=== PATIENT | female | born 1960 | race African-American/Black ===

== ENCOUNTER 2016-12-14 13:44 | Emergency (ER) | payer OTHER ==
[2016-12-14 13:48] VITALS: BP 142/95; PULSE 81; TEMP 98.1; BMI 25.6
[2016-12-14] MEDS ORDERED: KETOROLAC TROMETHAMINE 60 MG/2 ML VIAL IM ONE (14:17)
--- NOTE | 2016-12-14 14:23 | PDOC ---
History of Present Illness - General Chief Complaint: Back Pain Stated Complaint: BACK SPASMS Time Seen by Provider: 12/14/16 14:01 History Source: Patient Exam Limitations: No Limitations - History of Present Illness Initial Comments: 12/14/16 14:17 CHIEF COMPLAINT: Lower back pain HISTORY OF PRESENT ILLNESS: 56-year-old female, history of low back pain presents with same, exacerbated after last night slipped and fell . Pain described as "low back spasm" Nonradiating pain, no neurosensory deficits, no bowel or bladder difficulty incontinence or urinary retention, no saddle anesthesia, no footdrop. No history of IVDU or history of cancer. REVIEW OF SYSTEMS: GENERAL: Afebrile, denies any weakness RESPIRATORY: No cough, wheezing, or hemoptysis. CARDIAC: No chest pain or shortness of breath MUSCULOSKELETAL: Pain to generalized lower back. No point tenderness. SKIN : No erythema, no bruising, no deformity. GI/: Denies any abdominal pain, no urinary difficulty, incontinence or urinary retention. RECTAL: Denies any difficulty this A.m. NEUROLOGICAL: Denies any numbness or tingling. No neurosensory deficits. PHYSICAL EXAM: GENERAL: The patient is awake, alert, and fully oriented, in no acute distress. RESPIRATORY: Lungs clear bilaterally, no rhonchi wheezes or crackles CARDIAC: S1-S2 audible, no murmur rub or gallop MUSCULOSKELETAL: Pain to generalized lower back, nonradiating, no tingling or sensory deficit. Less than 2 second cap refill, +4 popliteal and pedal pulses. GI/: Abdomen soft, nontender, nondistended. No rebound tenderness. No masses palpable. MUSCULOSKELETAL: No spinal point tenderness. Normal reflexive and no deficits to sensation or strength. RECTAL: Deferred patient with no neurological findings SKIN: Warm, Dry, normal turgor, no erythema, no edema no bruising. Past History - Past Medical History Allergies/Adverse Reactions: Allergies Allergy/AdvReac Type Severity Reaction Status Date / Time No Known Allergies Allergy Verified 12/14/16 13:48 Home Medications: Ambulatory Orders Amoxicillin/Potassium Clav [Augmentin 875-125 Tablet] 1 each PO BID 10/30/14 Atenolol [Tenormin -] 50 mg PO DAILY 10/30/14 Dexamethasone [Decadron -] 4 mg PO BID #2 tablet 10/30/14 Fluticasone Prop 0.05% Nasal [Flonase -] 1 - 2 spray NS DAILY #1 spray.pump Loratadine [Claritin -] 10 mg PO DAILY #7 tablet 10/30/14 Ofloxacin 0.3% Ophth Soln [Ocuflox -] 2 drop OP Q4H 10/30/14 Ibuprofen [Motrin -] 600 mg PO TID #21 tablet 12/14/16 HTN: Yes Suicide Attempt (Hx): No - Immunization History Immunization Up to Date: Yes - Psycho/Social/Smoking Cessation Hx Anxiety: No Suicidal Ideation: No Smoking Status: No Smoking History: Never smoked Number of Cigarettes Smoked Daily: 1 Hx Alcohol Use: Yes (SOCIAL) Drug/Substance Use Hx: No Substance Use Type: None *Physical Exam - Vital Signs Last Vital Signs Temp Pulse Resp BP Pulse Ox 98.1 F 81 18 142/95 100 12/14/16 13:46 12/14/16 13:46 12/14/16 13:46 12/14/16 13:46 12/14/16 13:46 Medical Decision Making - Medical Decision Making 12/14/16 14:19 A/P: Patient with lower back pain, spasm. Patient has had similar in the past came to emergency department where she received a Toradol injection states that the injection helped her and is requesting the same now. Patient states the pain is exactly the same, no change. Denies any neurosensory deficits, no urinary symptoms. Toradol 60 mg IM 1 ordered 12/14/16 14:46 Patient states she feels better is requesting for discharge will follow-up with orthopedics as needed Motrin for pain 12/14/16 14:58 *DC/Admit/Observation/Transfer Diagnosis at time of Disposition: Low back pain Qualifiers: Chronicity: acute Back pain laterality: bilateral Sciatica presence: without sciatica Qualified Code(s): M54.5 - Low back pain - Discharge Dispostion Disposition: HOME Condition at time of disposition: Good Admit: No - Prescriptions Prescriptions: Ibuprofen [Motrin -] 600 mg PO TID #21 tablet - Referrals Referrals: Mackenzie Rick [Primary Care Provider] - - Patient Instructions Printed Discharge Instructions: Back Pain (Alternative Therapy) - Post Discharge Activity Work/School Note: Back to School
[2016-12-14] MEDS ORDERED: KETOROLAC TROMETHAMINE 60 MG/2 ML VIAL ONE (14:24)
== END 2016-12-14 15:18 | disposition home or self-care (01) ==
LOC: JERFT 13:44
PROC: 3E0233Z Introduction of Anti-inflammatory into Muscle, Percutaneous Approach (ICD-10-PCS; principal; 2016-12-14)
DX: M54.5 Low back pain (principal); W01.0XXA Fall on same level from slipping, tripping and stumbling without subsequent striking against object, initial encounter; Y93.89 Activity, other specified; Y92.89 Other specified places as the place of occurrence of the external cause
CPT/HCPCS: 99281-25